=== PATIENT | female | born 1990 | race African-American/Black ===

== ENCOUNTER 2021-03-22 12:01 | Emergency (ER) | payer BC ==
[~2021-03-22] VITALS: Ht 167.6 cm; Wt 112.0 kg
[2021-03-22 13:45] VITALS: BP 125/67
== END 2021-03-22 14:40 | disposition home or self-care (01) | DRG 179 ==
LOC: ED 12:01
DX: U07.1 COVID-19 (principal)

== ENCOUNTER 2021-04-11 13:53 | Emergency (ER) | payer OTHER, BC ==
[~2021-04-11] VITALS: Ht 167.6 cm; Wt 115.0 kg
[2021-04-11 15:40] VITALS: BP 148/88
== END 2021-04-11 15:40 | disposition home or self-care (01) | DRG 556 ==
LOC: ED 13:53
DX: M25.522 Pain in left elbow (principal); F17.200 Nicotine dependence, unspecified, uncomplicated; W01.0XXA Fall on same level from slipping, tripping and stumbling without subsequent striking against object, initial encounter

== ENCOUNTER 2021-04-13 11:23 | Emergency (ER) | payer OTHER, BC ==
[~2021-04-13] VITALS: Ht 167.6 cm; Wt 115.5 kg
[2021-04-13 12:59] VITALS: BP 140/87
[2021-04-13] MEDS ORDERED: IBUPROFEN600 MG PO (13:49)
== END 2021-04-13 13:55 | disposition home or self-care (01) | DRG 556 ==
LOC: ED 11:23
DX: M25.522 Pain in left elbow (principal); F17.210 Nicotine dependence, cigarettes, uncomplicated

== ENCOUNTER 2022-12-25 19:25 | Emergency (ER) | payer BC ==
[~2022-12-25] VITALS: Ht 167.6 cm; Wt 111.1 kg
[~2022-12-25 19:25] MED LIST: IBUPROFEN600 MG PO
[2022-12-25 19:36] VITALS: BP 146/99
[2022-12-25 19:45] VITALS: BP 150/108
[2022-12-25 19:56] VITALS: BP 165/110
[2022-12-25 20:00] VITALS: BP 149/105
[2022-12-25 20:15] VITALS: BP 157/104
[2022-12-25] MEDS ORDERED: ROBITUSSIN200 MG/10 PO (21:15)
[2022-12-25 22:32] VITALS: BP 144/68
== END 2022-12-25 22:40 | disposition home or self-care (01) | DRG 866 ==
LOC: ED 19:25
DX: B34.9 Viral infection, unspecified (principal); Z72.0 Tobacco use; Z20.822 Contact with and (suspected) exposure to COVID-19

== ENCOUNTER 2023-09-12 02:28 | Emergency (ER) | payer BC ==
[~2023-09-12] VITALS: Ht 167.6 cm; Wt 113.4 kg
[~2023-09-12 02:28] MED LIST changes: +ROBITUSSIN200 MG/10 PO
[2023-09-12] MEDS ORDERED: SODIUM CHLORIDE 0.9% 1,000 ML IV ONE (02:50)
[2023-09-12] MEDS ORDERED: MECLIZINE HCL 25 MG/TAB PO ONE (02:55)
[2023-09-12 03:07] LABS: BASO% 0.2 % (0-3); EOS% 0.6 % (0-8); HEMATOCRIT 40.5 % (37.0-47.0); HEMOGLOBIN 12.7 g/dl (12.0-16.0); IMMATURE GRANULOCYTES 0.3 % (0.0-5.0); LYMPH% 31.8 % (15-41); MEAN CELL VOLUME 90.6 fL CALC (80.0-100.0); MEAN CORPUSCULAR HGB 28.4 pG CALC (26.0-32.0); MEAN CORPUSCULAR HGB CONC 31.4 g/dL CAL (32.0-36.0); MONO% 7.8 % (2-13); NEUT# 7.13 thou/uL (2.00-7.15); NEUT% 59.3 % (42-76); RED BLOOD COUNT 4.47 mill/uL (4.20-5.60); RED CELL DISTRI WIDTH 13.7 % (11.5-15.5)
[2023-09-12 03:33] LABS: ALBUMIN 4.1 g/dL (3.2-5.0); ALKALINE PHOSPHATASE 39 u/l (38-126); ANION GAP 8 (6-22 (CALC)); BILIRUBIN, TOTAL 0.2 mg/dL (0.02-1.3); BUN 7 mg/dL (7-17); BUN/CREATININE RATIO 10 (12-20 (CALC)); CARBON DIOXIDE 22 mmol/l (22-30); CHLORIDE 110 mmol/l (95-108); CREATININE 0.7 mg/dL (0.5-1.0); ESTIMATED GFR 118 ML/MIN (>=90 (CALC)); MAGNESIUM 1.6 mg/dL (1.6-2.3); POTASSIUM 3.3 mmol/l (3.5-5.1); SGOT/AST 30 u/l (14-36); SODIUM 136 mmol/l (137-146); TOTAL PROTEIN 7.8 g/dL (6.3-8.2)
[2023-09-12 03:51] LABS: URINE BLOOD DIPSTICK Negative (NEGATIVE); URINE GLUCOSE - DIPSTICK Negative (NEGATIVE); URINE KETONE 40 mg/dL (NEGATIVE); URINE PROTEIN - DIPSTICK 30 mg/dL (NEG-TRACE); URINE SPECIFIC GRAVITY >=1.030
[2023-09-12 03:56] LABS: URINE COLOR Yellow; URINE LEUK ESTERASE Negative (NEGATIVE); URINE NITRITE - DIPSTICK Positive (Negative)
[2023-09-12 03:57] LABS: URINE BACTERIA MANY hpf; URINE EPITHELIAL CELLS MANY EPI/hpf (0-FEW)
[2023-09-12] MEDS ORDERED: MECLIZINE25 MG PO (04:52)
[2023-09-12 05:12] VITALS: BP 136/80
== END 2023-09-12 05:17 | disposition home or self-care (01) | DRG 833 ==
LOC: ED 02:28
PROVIDERS: Family Medicine
DX: O99.350 Diseases of the nervous system complicating pregnancy, unspecified trimester (principal); R42 Dizziness and giddiness; O10.919 Unspecified pre-existing hypertension complicating pregnancy, unspecified trimester; O99.330 Smoking (tobacco) complicating pregnancy, unspecified trimester; F17.200 Nicotine dependence, unspecified, uncomplicated; Z3A.00 Weeks of gestation of pregnancy not specified